=== PATIENT | male | born 1940 | race Caucasian/White ===

== ENCOUNTER 2020-09-16 11:39 | Inpatient (IN) | payer MEDICARE, OTHER ==
[2020-09-16] MEDS: Lisinopril 5 MG Tab PO SCH (16:30)
[2020-09-16] MEDS: Acetaminophen 325 MG Tab PO SCH ×2 (16:30→20:30)
[2020-09-16] MEDS: glipiZIDE 5 MG Tab PO SCH (16:31)
[2020-09-16] MEDS: metFORMIN 500 MG Tab PO SCH (18:21)
[2020-09-16] MEDS: traMADol 50 MG Tab PO SCH (18:22)
[2020-09-16] MEDS: rOPINIRole 0.5 MG Tab PO SCH (18:22)
[2020-09-16] MEDS ORDERED: Simvastatin 40 MG Tab PO SCH (20:00)
[2020-09-16] MEDS: Gabapentin 300 MG Cap PO SCH (20:28)
[2020-09-16] MEDS: Cyclobenzaprine 10 MG Tab PO SCH (20:29)
[2020-09-16] MEDS: Fish Oil/Omega-3 Fatty Acids 1 Gm Cap PO SCH (20:30)
[2020-09-16] MEDS: Fenofibrate,Micronized 134 MG Cap PO SCH (20:30)
[2020-09-16] MEDS: DULoxetine 30 MG Cap PO SCH (20:30)
[2020-09-16] MEDS: Donepezil 10 MG Tab PO SCH (20:31)
[2020-09-16] MEDS: Famotidine 20 MG Tab PO SCH (20:32)
--- NOTE | 2020-09-16 23:00 | HP ---
CHIEF COMPLAINT: Back surgery. HISTORY OF PRESENT ILLNESS: This is an 80-year-old male who on 09/11 had a L4- S1 TLIF by Dr. Ruiz. He had been having chronic pain for some time even though he had his hip surgery previously. He had been managed with 100 mg of tramadol 4 times a day. Since surgery, it sounds like things were in schedule. He did not know if he was supposed to ask for it and his pain was not under good control, but he is having bowel movements. He did have a catheter and unfortunately he failed a voiding trial and they had a difficult time putting the catheter back in, and they were wondering about some external urethral trauma because there was some bleeding, but no blood in the catheter bag. Years ago, the patient did have a TURP type prostate surgery. He otherwise has not had any burning. He has not had any cough or trouble breathing. No chest pain. He has no history of coronary disease and in fact did have a cardiac workup in preparation for this surgery with a dobutamine stress echo. The patient did require some atropine, but he had a normal stress echo. He also has diabetes, but has not been on insulin. He had to get a little bit of insulin in the hospital. He also has a diagnosis of Alzheimer disease, but it is reported to be mild. His son who is a nurse practitioner is at the bedside and said the patient drove himself to [place] for his appointments and tests, met with some friends down there. The patient normally follows with Dr. Rooney at [facility], but wanted to be followed by myself for this post hospital stay. ALLERGIES: For this patient do include chocolate, peanut, pine trees, adhesives, Pamela-Villanova causes body aches, benzoin, codeine, Comtrex, gentamicin, Lipitor, Lopid, Procardia, Questran, and Zocor. MEDICATION: His medication list is reviewed. He is on the tramadol 100 every 6 hours scheduled; Aricept 10 mg at bedtime; amoxicillin prior to dental work; Tylenol 650 every 4 hours scheduled while awake; aspirin 81 mg daily; metformin 500 twice a day, but actually I confirmed with his [facility] list, actually his metformin was 1000 twice a day but of the XR variety; TriCor 145 daily; Lopressor 25 daily and in fact that is what it is, not succinate; Glucotrol 2.5 mg dose in the morning and 5 mg before supper; Neurontin 600 3 times a day; Zocor 80 mg at bedtime. Actually, there are some really weird doses for his medications. I will be having my pharmacy review this. They have been reviewed with Zoltan's list and are found to be correct but not felt to be maybe the best for the patient with 80 of Zocor, Requip 0.25 mg in the evening, lisinopril 5 mg daily, Flomax 0.4 daily, Flexeril 10 mg at bedtime, Cymbalta 30 mg twice daily, fish oil 1000 3 times a day, Pepcid 20 mg twice daily, multivitamin daily, and glucosamine. 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 PAST SURGICAL HISTORY: He has had a rotator cuff surgery on the left. 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 He has had his tonsils and adenoids out, thyroidectomy, prostatectomy, nasal sinus surgery, left knee surgery x2, left hip surgery, intestinal resection, it sounds like a small bowel diverticulum, umbilical hernia repair, lumbar fusion, eye surgery for cataracts and lens implants, colonoscopies, appendectomy. FAMILY HISTORY: Parents are both . Father had Alzheimer's. Mother had heart disease and hypertension. SOCIAL HISTORY: The patient is . He lives with his . He is retired. His son is a nurse practitioner who works for [employer]. REVIEW OF SYSTEMS: General: The patient is not really aware of any weight changes. No fever, no chills. HEENT: No trouble swallowing. No choking on food. Cardiac: No chest pain. No palpitations. Respiratory: As stated in the HPI. Otherwise, all systems reviewed and found to be negative unless otherwise stated. PHYSICAL EXAMINATION: Vital Signs: He has a weight of 88.9 kg, temp 98.9, pulse 91, blood pressure 118/68, respiratory rate 20, O2 of 91 on room air. General: He is in no acute distress. Heart: Regular rate and rhythm. S1, S2 without murmur. Lungs: Lung sounds are clear to auscultation bilaterally without crackles or wheezes. Abdomen: Nondistended, nontender. Extremities: Warm and dry. No edema. He can push down his feet well. He can move his extremities. He does feel like his right leg is still weaker, this was present before surgery. Mental Status: He is alert and orientated x3. He is very polite. He is very cooperative. ASSESSMENT: 1. Postoperative lumbar fusion from 09/11, T4-S1 TLIF. We will continue current precautions per Neurosurgery. He just had his incision changed today, so I will evaluate when it is next change. Staple removal is already planned for the . 2. Chronic pain syndrome. We will schedule the tramadol and Tylenol. Hopefully, we can try to at least wean down to a lower dose of tramadol with some of the doses but will give it several days to a week. 3. Urinary retention with benign prostatic hyperplasia. He has outpatient Urology followup. Given the difficulty after the voiding trial of replacing his Scott, we will likely not remove his Scott until he goes for that Urology visit. 4. Type 2 diabetes, controlled. We will have him on his metformin and glipizide and do b.i.d. checks. 5. Essential hypertension. We will continue his home medications. 6. Hyperlipidemia. I am decreasing the Zocor to 40 mg daily due to concern for that dose with rhabdo. 7. Depression. We will continue his Cymbalta. This will also help with chronic pain. 8. Obesity. 9. Deep vein thrombosis prophylaxis. We will put him on SCDs. 10.Delirium reported from the hospital in [place]. This is likely with his underlying dementia. He is already on Aricept. We will have Seroquel available to use if needed. He did get a dose in [place] and slept well but we will try for redirection 1st. PLAN: 1. The patient will do swing bed with PT and OT. He will follow up with Neurosurgery in 6 weeks. We will discharge him home when able. 2. He is a code level 1. MKA: 09/16/2020 21:11:45 MODL: 09/16/2020 22:38:51 /[id number]
[2020-09-17] MEDS: traMADol 50 MG Tab PO SCH ×4 (00:24→18:13)
[2020-09-17] MEDS: Acetaminophen 325 MG Tab PO SCH ×6 (00:25→20:12)
[2020-09-17] MEDS: glipiZIDE 5 MG Tab PO SCH ×2 (06:14→16:54)
[2020-09-17] MEDS: Glucosamine 500 MG Cap PO SCH (08:09)
[2020-09-17] MEDS: Tamsulosin 0.4 MG Cap.ER PO SCH (08:09)
[2020-09-17] MEDS: Aspirin 81 MG Tab.EC PO SCH (08:09)
[2020-09-17] MEDS: Famotidine 20 MG Tab PO SCH ×2 (08:09→20:10)
[2020-09-17] MEDS: Metoprolol Tartrate 25 MG Tab PO SCH (08:09)
[2020-09-17] MEDS: metFORMIN 500 MG Tab PO SCH ×2 (08:09→17:41)
[2020-09-17] MEDS: DULoxetine 30 MG Cap PO SCH ×2 (08:09→20:12)
[2020-09-17] MEDS: Multivitamins with Iron/Calcium/Folic Acid/Minerals Tab PO SCH (08:10)
[2020-09-17] MEDS: Fish Oil/Omega-3 Fatty Acids 1 Gm Cap PO SCH ×3 (08:10→20:11)
[2020-09-17] MEDS: Gabapentin 300 MG Cap PO SCH ×3 (08:11→20:10)
[2020-09-17] MEDS: Lisinopril 5 MG Tab PO SCH (16:54)
[2020-09-17] MEDS: rOPINIRole 0.5 MG Tab PO SCH (18:14)
[2020-09-17] MEDS: QUEtiapine 25 MG Tab PO PRN (20:10)
[2020-09-17] MEDS: Donepezil 10 MG Tab PO SCH (20:10)
[2020-09-17] MEDS: Cyclobenzaprine 10 MG Tab PO SCH (20:11)
[2020-09-17] MEDS: Fenofibrate,Micronized 134 MG Cap PO SCH (20:11)
[2020-09-17] MEDS: Simvastatin 40 MG Tab PO SCH (20:15)
[2020-09-18] MEDS: Acetaminophen 325 MG Tab PO SCH ×7 (01:45→23:50)
[2020-09-18] MEDS: traMADol 50 MG Tab PO SCH ×5 (01:46→23:50)
[2020-09-18] MEDS: glipiZIDE 5 MG Tab PO SCH ×2 (06:12→17:21)
[2020-09-18] MEDS: Aspirin 81 MG Tab.EC PO SCH (07:40)
[2020-09-18] MEDS: Multivitamins with Iron/Calcium/Folic Acid/Minerals Tab PO SCH (07:40)
[2020-09-18] MEDS: DULoxetine 30 MG Cap PO SCH ×2 (07:40→19:54)
[2020-09-18] MEDS: metFORMIN 500 MG Tab PO SCH ×2 (07:41→17:21)
[2020-09-18] MEDS: Metoprolol Tartrate 25 MG Tab PO SCH (07:41)
[2020-09-18] MEDS: Glucosamine 500 MG Cap PO SCH (07:41)
[2020-09-18] MEDS: Tamsulosin 0.4 MG Cap.ER PO SCH (07:41)
[2020-09-18] MEDS: Fish Oil/Omega-3 Fatty Acids 1 Gm Cap PO SCH ×3 (07:41→19:55)
[2020-09-18] MEDS: Gabapentin 300 MG Cap PO SCH ×3 (07:41→19:55)
[2020-09-18] MEDS: Famotidine 20 MG Tab PO SCH ×2 (07:42→19:56)
[2020-09-18] MEDS: Lisinopril 5 MG Tab PO SCH (17:21)
[2020-09-18] MEDS: rOPINIRole 0.5 MG Tab PO SCH (18:12)
[2020-09-18] MEDS: Fenofibrate,Micronized 134 MG Cap PO SCH (19:54)
[2020-09-18] MEDS: Donepezil 10 MG Tab PO SCH (19:54)
[2020-09-18] MEDS: Cyclobenzaprine 10 MG Tab PO SCH (19:55)
[2020-09-18] MEDS: Simvastatin 40 MG Tab PO SCH (19:57)
[2020-09-19] MEDS: Acetaminophen 325 MG Tab PO SCH ×5 (03:42→19:59)
[2020-09-19] MEDS: glipiZIDE 5 MG Tab PO SCH ×2 (06:21→17:16)
[2020-09-19] MEDS: traMADol 50 MG Tab PO SCH ×4 (06:21→18:25)
[2020-09-19 07:03] LABS: CHLORIDE,CL 106 mmol/L (98-107); SODIUM,NA 141 mmol/L (136-145)
[2020-09-19 07:06] LABS: ANION GAP 11.2 mmol/L (5-15)
[2020-09-19] MEDS: Fish Oil/Omega-3 Fatty Acids 1 Gm Cap PO SCH ×3 (07:47→19:58)
[2020-09-19] MEDS: Tamsulosin 0.4 MG Cap.ER PO SCH (07:48)
[2020-09-19] MEDS: Metoprolol Tartrate 25 MG Tab PO SCH (07:48)
[2020-09-19] MEDS: DULoxetine 30 MG Cap PO SCH ×2 (07:48→19:57)
[2020-09-19] MEDS: Glucosamine 500 MG Cap PO SCH (07:48)
[2020-09-19] MEDS: Multivitamins with Iron/Calcium/Folic Acid/Minerals Tab PO SCH (07:48)
[2020-09-19] MEDS: Aspirin 81 MG Tab.EC PO SCH (07:48)
[2020-09-19] MEDS: metFORMIN 500 MG Tab PO SCH ×2 (07:48→18:24)
[2020-09-19] MEDS: Gabapentin 300 MG Cap PO SCH ×3 (07:48→19:59)
[2020-09-19] MEDS: Famotidine 20 MG Tab PO SCH ×2 (07:50→19:59)
[2020-09-19] MEDS: Lisinopril 5 MG Tab PO SCH (17:17)
--- NOTE | 2020-09-19 17:21 | PN ---
Progress Note for SUSAN JESUS Date: 09/19/2020 Room #: VM.217 SUBJECTIVE: This is an 80-year-old recovering after a back surgery. He is frustrated because he is having some trouble bending the right knee, but he was able to do it in bed. He is progressing with PT and walking. He is feeling very warm and sweaty over his incision, but I evaluated it today. There was no drainage, no redness. It looked excellent. He had lab work this morning. White count was normal. Hemoglobin was stable. Kidney function was good. His blood sugars have been in the 155 to 230 range, usually higher at night. He has not had any lows. He is on oral agents. He is not having any cough or shortness of breath. The patient has been wearing his support stockings. They also make him feel warm. He is not currently using SCDs, but they are available. OBJECTIVE: Vital Signs: His temperature is 97, pulse 79, blood pressure 126/84, respiratory rate 16, and O2 of 95% on room air. General: He is in no acute distress. Heart: Regular rate and rhythm. S1, S2 without murmur. Lungs: Lung sounds are clear to auscultation bilaterally without crackles or wheezes. Abdomen: Positive bowel sounds. Soft, nondistended, nontender. Extremities: Warm and dry. No edema. Mental Status: Alert and orientated x3. Back: Incision satish intact. No redness or drainage. LABORATORY DATA: Laboratory work did show him to have a white count of 6.9, hemoglobin 10.1, platelets 381. Sodium 141, potassium 4.2, chloride 106, bicarb 28, BUN 19, creatinine 0.9, glucose 151, calcium 8.5. ASSESSMENT: 1. Postoperative lumbar fusion, T4 to S1 on 09/11/2020. Continue with current therapies. Staple removal on 09/25/2020. 2. Chronic pain syndrome. He feels like his pain control is okay. He seems to be most frustrated about his leg, but this was present prior he reports. 3. Urinary retention with benign prostatic hypertrophy. Catheter is in place. This has also been bothering him. There is currently no blood in the catheter bag. We will not remove it if he has a followup with Urology and we will wait for that. 4. Type 2 diabetes, controlled. Keep medications the same. He is on b.i.d. checks. 5. Essential hypertension. 6. Hyperlipidemia, depression, obesity, and DVT prophylaxis. He does have SCDs available. He is currently wearing support hose. 7. Delirium with underlying mild dementia. He does have Seroquel available and has used it at night, which has helped him to sleep. PLAN: The patient will continue swing bed with current therapies. He will likely need lab work repeated next week. Discharge home when able. MKA: 09/19/2020 16:59:04 MODL: 09/19/2020 17:14:37 /[id number]
[2020-09-19] MEDS: rOPINIRole 0.5 MG Tab PO SCH (18:24)
[2020-09-19] MEDS: Donepezil 10 MG Tab PO SCH (19:57)
[2020-09-19] MEDS: Fenofibrate,Micronized 134 MG Cap PO SCH (19:58)
[2020-09-19] MEDS: Cyclobenzaprine 10 MG Tab PO SCH (19:58)
[2020-09-19] MEDS: Simvastatin 40 MG Tab PO SCH (20:00)
[2020-09-19] MEDS: QUEtiapine 25 MG Tab PO PRN (20:04)
[2020-09-20] MEDS: traMADol 50 MG Tab PO SCH ×4 (00:34→18:47)
[2020-09-20] MEDS: Acetaminophen 325 MG Tab PO SCH ×6 (00:34→19:46)
[2020-09-20] MEDS: glipiZIDE 5 MG Tab PO SCH ×2 (06:36→16:17)
[2020-09-20] MEDS: DULoxetine 30 MG Cap PO SCH ×2 (07:57→19:43)
[2020-09-20] MEDS: Aspirin 81 MG Tab.EC PO SCH (07:57)
[2020-09-20] MEDS: Multivitamins with Iron/Calcium/Folic Acid/Minerals Tab PO SCH (07:57)
[2020-09-20] MEDS: Glucosamine 500 MG Cap PO SCH (07:58)
[2020-09-20] MEDS: Tamsulosin 0.4 MG Cap.ER PO SCH (07:58)
[2020-09-20] MEDS: Gabapentin 300 MG Cap PO SCH ×3 (07:58→19:42)
[2020-09-20] MEDS: Famotidine 20 MG Tab PO SCH ×2 (07:58→19:45)
[2020-09-20] MEDS: Fish Oil/Omega-3 Fatty Acids 1 Gm Cap PO SCH ×3 (07:59→19:46)
[2020-09-20] MEDS: metFORMIN 500 MG Tab PO SCH ×2 (07:59→17:25)
[2020-09-20] MEDS: Metoprolol Tartrate 25 MG Tab PO SCH (08:01)
[2020-09-20] MEDS: Lisinopril 5 MG Tab PO SCH (16:21)
[2020-09-20] MEDS: rOPINIRole 0.5 MG Tab PO SCH (18:47)
[2020-09-20] MEDS: Donepezil 10 MG Tab PO SCH (19:42)
[2020-09-20] MEDS: Cyclobenzaprine 10 MG Tab PO SCH (19:43)
[2020-09-20] MEDS: Fenofibrate,Micronized 134 MG Cap PO SCH (19:43)
[2020-09-20] MEDS: Simvastatin 40 MG Tab PO SCH (19:43)
[2020-09-21] MEDS: traMADol 50 MG Tab PO SCH ×4 (00:39→18:02)
[2020-09-21] MEDS: Acetaminophen 325 MG Tab PO SCH ×6 (00:40→19:59)
[2020-09-21] MEDS: glipiZIDE 5 MG Tab PO SCH ×2 (06:03→16:51)
[2020-09-21] MEDS: Gabapentin 300 MG Cap PO SCH ×3 (07:53→19:57)
[2020-09-21] MEDS: Famotidine 20 MG Tab PO SCH ×2 (07:53→19:59)
[2020-09-21] MEDS: Multivitamins with Iron/Calcium/Folic Acid/Minerals Tab PO SCH (07:53)
[2020-09-21] MEDS: Glucosamine 500 MG Cap PO SCH (07:53)
[2020-09-21] MEDS: Fish Oil/Omega-3 Fatty Acids 1 Gm Cap PO SCH ×3 (07:54→19:57)
[2020-09-21] MEDS: Aspirin 81 MG Tab.EC PO SCH (07:54)
[2020-09-21] MEDS: metFORMIN 500 MG Tab PO SCH ×2 (07:54→17:42)
[2020-09-21] MEDS: DULoxetine 30 MG Cap PO SCH ×2 (07:54→19:59)
[2020-09-21] MEDS: Tamsulosin 0.4 MG Cap.ER PO SCH (07:54)
[2020-09-21] MEDS: Metoprolol Tartrate 25 MG Tab PO SCH (07:55)
[2020-09-21] MEDS: Lisinopril 5 MG Tab PO SCH (16:54)
[2020-09-21] MEDS: rOPINIRole 0.5 MG Tab PO SCH (18:02)
[2020-09-21] MEDS: Cyclobenzaprine 10 MG Tab PO SCH (19:57)
[2020-09-21] MEDS: Fenofibrate,Micronized 134 MG Cap PO SCH (19:58)
[2020-09-21] MEDS: Simvastatin 40 MG Tab PO SCH (19:58)
[2020-09-21] MEDS: Donepezil 10 MG Tab PO SCH (19:59)
[2020-09-22] MEDS: traMADol 50 MG Tab PO SCH ×4 (00:20→18:33)
[2020-09-22] MEDS: Acetaminophen 325 MG Tab PO SCH ×6 (00:23→19:35)
[2020-09-22] MEDS: glipiZIDE 5 MG Tab PO SCH ×2 (06:17→17:22)
[2020-09-22] MEDS: Multivitamins with Iron/Calcium/Folic Acid/Minerals Tab PO SCH (07:43)
[2020-09-22] MEDS: Aspirin 81 MG Tab.EC PO SCH (07:44)
[2020-09-22] MEDS: Tamsulosin 0.4 MG Cap.ER PO SCH (07:44)
[2020-09-22] MEDS: Famotidine 20 MG Tab PO SCH ×2 (07:44→19:35)
[2020-09-22] MEDS: DULoxetine 30 MG Cap PO SCH ×2 (07:45→19:35)
[2020-09-22] MEDS: Gabapentin 300 MG Cap PO SCH ×3 (07:45→19:34)
[2020-09-22] MEDS: Fish Oil/Omega-3 Fatty Acids 1 Gm Cap PO SCH ×3 (07:45→19:35)
[2020-09-22] MEDS: Metoprolol Tartrate 25 MG Tab PO SCH ×2 (07:46→19:35)
[2020-09-22] MEDS: Glucosamine 500 MG Cap PO SCH (07:48)
[2020-09-22] MEDS: metFORMIN 500 MG Tab PO SCH ×2 (07:48→17:22)
--- NOTE | 2020-09-22 12:39 | PCM.SN.2 ---
- Free Text/Narrative Note: Blood sugars, BP and HR running a little high will increase metformin to 1 gram BID and lopressor to BID (unsure why it is once daily only at home). I had also decreased Zocor from 80 to 40 mg here. Will continue to monitor and will try to round and discuss possible weaning down on pain medications with him tomorrow.
[2020-09-22] MEDS: Lisinopril 5 MG Tab PO SCH (17:23)
[2020-09-22] MEDS: rOPINIRole 0.5 MG Tab PO SCH (18:33)
[2020-09-22] MEDS: Cyclobenzaprine 10 MG Tab PO SCH (19:33)
[2020-09-22] MEDS: Fenofibrate,Micronized 134 MG Cap PO SCH (19:33)
[2020-09-22] MEDS: Donepezil 10 MG Tab PO SCH (19:34)
[2020-09-22] MEDS: Simvastatin 40 MG Tab PO SCH (19:35)
[2020-09-23] MEDS: traMADol 50 MG Tab PO SCH ×4 (00:18→19:42)
[2020-09-23] MEDS: Acetaminophen 325 MG Tab PO SCH ×6 (00:19→19:43)
[2020-09-23] MEDS: glipiZIDE 5 MG Tab PO SCH ×2 (06:11→17:04)
[2020-09-23] MEDS: Famotidine 20 MG Tab PO SCH ×2 (07:41→19:35)
[2020-09-23] MEDS: Gabapentin 300 MG Cap PO SCH ×3 (07:41→19:35)
[2020-09-23] MEDS: Fish Oil/Omega-3 Fatty Acids 1 Gm Cap PO SCH ×3 (07:41→19:35)
[2020-09-23] MEDS: metFORMIN 500 MG Tab PO SCH ×2 (07:41→18:22)
[2020-09-23] MEDS: Aspirin 81 MG Tab.EC PO SCH (07:41)
[2020-09-23] MEDS: Multivitamins with Iron/Calcium/Folic Acid/Minerals Tab PO SCH (07:41)
[2020-09-23] MEDS: Metoprolol Tartrate 25 MG Tab PO SCH ×2 (07:42→19:38)
[2020-09-23] MEDS: DULoxetine 30 MG Cap PO SCH ×2 (07:42→19:35)
[2020-09-23] MEDS: Tamsulosin 0.4 MG Cap.ER PO SCH (07:42)
[2020-09-23] MEDS: Glucosamine 500 MG Cap PO SCH (07:42)
[2020-09-23] MEDS ORDERED: traMADol 50 MG Tab PO PRN (08:24)
[2020-09-23] MEDS: Lisinopril 5 MG Tab PO SCH ×2 (17:04→17:08)
[2020-09-23] MEDS: rOPINIRole 0.5 MG Tab PO SCH (18:22)
[2020-09-23] MEDS: Donepezil 10 MG Tab PO SCH (19:35)
[2020-09-23] MEDS: Simvastatin 40 MG Tab PO SCH (19:35)
[2020-09-23] MEDS: Fenofibrate,Micronized 134 MG Cap PO SCH (19:35)
[2020-09-23] MEDS: Cyclobenzaprine 10 MG Tab PO SCH (19:40)
[2020-09-24] MEDS: Acetaminophen 325 MG Tab PO SCH ×6 (00:18→19:45)
[2020-09-24] MEDS: glipiZIDE 5 MG Tab PO SCH ×2 (06:16→16:28)
[2020-09-24] MEDS: traMADol 50 MG Tab PO SCH ×4 (06:17→20:28)
[2020-09-24] MEDS: Metoprolol Tartrate 25 MG Tab PO SCH ×2 (07:45→19:45)
[2020-09-24] MEDS: Multivitamins with Iron/Calcium/Folic Acid/Minerals Tab PO SCH (07:45)
[2020-09-24] MEDS: Aspirin 81 MG Tab.EC PO SCH (07:45)
[2020-09-24] MEDS: Tamsulosin 0.4 MG Cap.ER PO SCH (07:45)
[2020-09-24] MEDS: Glucosamine 500 MG Cap PO SCH (07:45)
[2020-09-24] MEDS: metFORMIN 500 MG Tab PO SCH ×2 (07:51→18:21)
[2020-09-24] MEDS: Gabapentin 300 MG Cap PO SCH ×3 (07:52→19:47)
[2020-09-24] MEDS: Fish Oil/Omega-3 Fatty Acids 1 Gm Cap PO SCH ×3 (07:52→19:44)
[2020-09-24] MEDS: DULoxetine 30 MG Cap PO SCH ×2 (07:52→19:45)
[2020-09-24] MEDS: Famotidine 20 MG Tab PO SCH ×2 (07:52→19:45)
--- NOTE | 2020-09-24 10:06 | PN ---
Progress Note for SUSAN JESUS Date: 09/24/2020 Room #: VM.217 SUBJECTIVE: This is an 80-year-old on swing bed recovering after back surgery. The patient had been doing better with pain control, but I did decrease him down to tramadol t.i.d. and he has had a bad night. He slept pretty good up until about 4 a.m., then he woke up per Nursing. He had gotten into chair with staff, but did not have on his back brace, and even though he had p.r.n. tramadol available, he did not get any at that time, but he did get his morning dose early, and his pain is improved now, but he said it took a while. Otherwise, he has not had any trouble breathing. No coughing. No fevers. He continues with the catheter, but there is no blood. Arrangements have been made to see Urology next week. He is on the Flomax. He did have a little bit of drop in blood pressure yesterday, 87/56. He does not recall being lightheaded or dizzy, but we did increase his metoprolol to twice daily since it is the Lopressor version. He admits he is forgetful about things. 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 He appreciates his recovery time here. He is also on Tylenol. OBJECTIVE: Vital Signs: His temp 98, pulse 68, blood pressure 123/68, respiratory rate 16, and O2 of 94% on room air. General: He is in no acute distress. Heart: Regular rate and rhythm. S1, S2 without murmur. Lungs: Sounds are clear to auscultation bilaterally without crackles or wheezes. Abdomen: Nontender. Extremities: Warm and dry. No edema. Mental Status: He is alert, he is orientated x3. LABORATORY DATA: He did have some lab work last week that looked okay. Hemoglobin was 10.1. ASSESSMENT: 1. Postoperative lumbar fusion T4 through S1. Continue with current therapies. Staple removal tomorrow. 2. Chronic pain syndrome. We will continue with 100 mg t.i.d. of tramadol and encourage Nursing to use a 50 mg breakthrough dose at night if he has problems. 3. Urinary retention with benign prostatic hypertrophy. I have spoken to Urology. They will try to sort things out on Tuesday when they see him. He is currently not on Proscar. 4. Type 2 diabetes, controlled on his increased metformin. 5. Essential hypertension, controlled. 6. Hyperlipidemia. 7. Depression. 8. Obesity. 9. Deep venous thrombosis prophylaxis, on SCDs. 10.Delirium with underlying dementia. He actually seems to be doing quite well here. He has not had a dose of Seroquel at night for at least 4 days. 11.Restless legs. He is on his Requip. PLAN: The patient will continue working with therapies. We will get lab work again on Tuesday. He will have the Scott catheter in place until he follows up with Urology. The patient is hoping to go to assisted living after discharge. MKA: 09/24/2020 09:20:23 MODL: 09/24/2020 10:00:18 /[id number]
[2020-09-24] MEDS: Lisinopril 5 MG Tab PO SCH (16:28)
[2020-09-24] MEDS: rOPINIRole 0.5 MG Tab PO SCH (18:21)
[2020-09-24] MEDS: Fenofibrate,Micronized 134 MG Cap PO SCH (19:43)
[2020-09-24] MEDS: Cyclobenzaprine 10 MG Tab PO SCH (19:44)
[2020-09-24] MEDS: Donepezil 10 MG Tab PO SCH (19:46)
[2020-09-24] MEDS: Simvastatin 40 MG Tab PO SCH (19:47)
[2020-09-25] MEDS: Acetaminophen 325 MG Tab PO SCH ×6 (03:12→20:39)
[2020-09-25] MEDS: glipiZIDE 5 MG Tab PO SCH ×2 (06:04→17:39)
[2020-09-25] MEDS: metFORMIN 500 MG Tab PO SCH ×2 (09:19→17:37)
[2020-09-25] MEDS: traMADol 50 MG Tab PO SCH ×3 (09:20→20:39)
[2020-09-25] MEDS: Multivitamins with Iron/Calcium/Folic Acid/Minerals Tab PO SCH (09:20)
[2020-09-25] MEDS: Gabapentin 300 MG Cap PO SCH ×3 (09:20→20:39)
[2020-09-25] MEDS: Glucosamine 500 MG Cap PO SCH (09:21)
[2020-09-25] MEDS: Fish Oil/Omega-3 Fatty Acids 1 Gm Cap PO SCH ×3 (09:21→20:39)
[2020-09-25] MEDS: Metoprolol Tartrate 25 MG Tab PO SCH ×2 (09:22→20:40)
[2020-09-25] MEDS: Famotidine 20 MG Tab PO SCH ×2 (09:22→20:39)
[2020-09-25] MEDS: Aspirin 81 MG Tab.EC PO SCH (09:22)
[2020-09-25] MEDS: Tamsulosin 0.4 MG Cap.ER PO SCH (09:22)
[2020-09-25] MEDS: DULoxetine 30 MG Cap PO SCH ×2 (09:22→20:39)
[2020-09-25] MEDS: Lisinopril 5 MG Tab PO SCH (17:37)
[2020-09-25] MEDS: rOPINIRole 0.5 MG Tab PO SCH (18:59)
--- NOTE | 2020-09-25 19:14 | PN ---
Progress Note for SUSAN JESUS Date: 09/25/2020 Room #: VM.217 SUBJECTIVE: This is an 80-year-old on swing bed after a lumbar back surgery. I was asked to see him today by nursing due to the fact he was having left lower quadrant pain, particularly with sitting or trying to have a bowel movement, even though he is having bowel movements. The pain also goes into his groin. I examined his scrotum. It was not swollen or red, but it was tender. He has had previous hernia surgeries and intestinal resections done in the past, but the hernia I see listed is umbilical. There are no obvious inguinal hernia scars noted, but the area was in that left lower quadrant above the groin, almost a small deficit in the fascia, but no bulge noted. The patient was tender here. He has not been throwing up or feeling sick. He says it has been going on like 3 days. He had a decrease in his tramadol to 100 three times a day and has not taken any extra doses. He had lab work 1 week ago that was excellent. OBJECTIVE: VITAL SIGNS: Temperature 98.2, pulse 72, blood pressure 130/71, respiratory rate 18, O2 96 on room air. GENERAL: He is in no acute distress. HEART: Regular rate and rhythm. LUNGS: Sounds are clear to auscultation. ABDOMEN: Positive bowel sounds. It is soft and nondistended. There is tenderness in the left lower quadrant. PELVIC: His penis does have a Scott catheter in place. I did not actually appreciate any stitch. There is no bleeding around it. His scrotum were not enlarged or swollen or red, but they are tender, especially on the left side. There is no redness, warmth, or drainage. MENTAL STATUS: He is alert and orientated x3. ASSESSMENT: 1. Left lower quadrant pain. The patient does report some history of diverticulitis. We will get lab work. If in fact he does have some hernia, he would need a CT to further evaluate that. I did discuss with the patient that he is going to be seeing Urology next week and we will see what they think. Hopefully, they can remove his catheter. We will also check a UA. His urine is a little bit darker, but not bloody. He has been drinking plenty of water. They have been flushing it. 2. BPH with urinary retention. He is on Flomax. He will see Urology next week as scheduled. PLAN: We will get lab work and a UA. May use Tylenol for pain. His pain is not severe enough to warrant any CT, but if it would worsen, we would check that. Flush the catheter if needed for clots. Continue other therapies for his back surgery recovery. The rest of his vitals and lab work has looked excellent. Blood sugars have also improved. MKA: 09/25/2020 18:46:32 MODL: 09/25/2020 19:08:34 /[id number]
[2020-09-25] MEDS: Fenofibrate,Micronized 134 MG Cap PO SCH (20:38)
[2020-09-25] MEDS: Donepezil 10 MG Tab PO SCH (20:39)
[2020-09-25] MEDS: Cyclobenzaprine 10 MG Tab PO SCH (20:40)
[2020-09-25] MEDS: Simvastatin 40 MG Tab PO SCH (20:40)
[2020-09-26] MEDS: Acetaminophen 325 MG Tab PO SCH ×7 (02:39→23:57)
[2020-09-26] MEDS: glipiZIDE 5 MG Tab PO SCH ×2 (06:53→17:02)
[2020-09-26 06:58] LABS: ANION GAP 12.6 mmol/L (5-15); CHLORIDE,CL 104 mmol/L (98-107); SODIUM,NA 141 mmol/L (136-145)
[2020-09-26] MEDS: Glucosamine 500 MG Cap PO SCH (07:58)
[2020-09-26] MEDS: Gabapentin 300 MG Cap PO SCH ×3 (07:58→20:45)
[2020-09-26] MEDS: Fish Oil/Omega-3 Fatty Acids 1 Gm Cap PO SCH ×3 (07:58→20:45)
[2020-09-26] MEDS: traMADol 50 MG Tab PO SCH ×3 (07:58→20:47)
[2020-09-26] MEDS: DULoxetine 30 MG Cap PO SCH ×2 (07:58→20:48)
[2020-09-26] MEDS: Famotidine 20 MG Tab PO SCH ×2 (07:59→20:48)
[2020-09-26] MEDS: Aspirin 81 MG Tab.EC PO SCH (07:59)
[2020-09-26] MEDS: Tamsulosin 0.4 MG Cap.ER PO SCH (08:00)
[2020-09-26] MEDS: metFORMIN 500 MG Tab PO SCH ×2 (08:00→18:16)
[2020-09-26] MEDS: Multivitamins with Iron/Calcium/Folic Acid/Minerals Tab PO SCH (08:00)
[2020-09-26] MEDS: Metoprolol Tartrate 25 MG Tab PO SCH ×2 (08:00→20:48)
[2020-09-26] MEDS: Sulfamethoxazole/Trimethoprim 800-160 MG Tab PO SCH ×2 (09:02→20:48)
[2020-09-26] MEDS: Lisinopril 5 MG Tab PO SCH (17:02)
[2020-09-26] MEDS: rOPINIRole 0.5 MG Tab PO SCH (18:21)
[2020-09-26] MEDS: Cyclobenzaprine 10 MG Tab PO SCH (20:47)
[2020-09-26] MEDS: Simvastatin 40 MG Tab PO SCH (20:47)
[2020-09-26] MEDS: Fenofibrate,Micronized 134 MG Cap PO SCH (20:48)
[2020-09-26] MEDS: Donepezil 10 MG Tab PO SCH (20:49)
[2020-09-27] MEDS: Acetaminophen 325 MG Tab PO SCH ×5 (03:47→19:58)
[2020-09-27] MEDS: glipiZIDE 5 MG Tab PO SCH ×2 (06:38→17:10)
[2020-09-27] MEDS: Fish Oil/Omega-3 Fatty Acids 1 Gm Cap PO SCH ×2 (07:36→19:52)
[2020-09-27] MEDS: Glucosamine 500 MG Cap PO SCH (07:36)
[2020-09-27] MEDS: Gabapentin 300 MG Cap PO SCH ×3 (07:36→19:52)
[2020-09-27] MEDS: DULoxetine 30 MG Cap PO SCH ×2 (07:37→19:58)
[2020-09-27] MEDS: Aspirin 81 MG Tab.EC PO SCH (07:37)
[2020-09-27] MEDS: Tamsulosin 0.4 MG Cap.ER PO SCH (07:37)
[2020-09-27] MEDS: traMADol 50 MG Tab PO SCH ×3 (07:37→19:52)
[2020-09-27] MEDS: metFORMIN 500 MG Tab PO SCH ×2 (07:37→17:09)
[2020-09-27] MEDS: Metoprolol Tartrate 25 MG Tab PO SCH ×2 (07:39→19:56)
[2020-09-27] MEDS: Multivitamins with Iron/Calcium/Folic Acid/Minerals Tab PO SCH (07:39)
[2020-09-27] MEDS: Famotidine 20 MG Tab PO SCH ×2 (07:39→19:52)
[2020-09-27] MEDS: Sulfamethoxazole/Trimethoprim 800-160 MG Tab PO SCH ×2 (07:39→19:59)
--- NOTE | 2020-09-27 13:09 | PN ---
Progress Note for SUSAN JESUS Date: 09/26/2020 Room #: VM.217 SUBJECTIVE: This is an 80-year-old seen today due to having left lower quadrant abdominal discomfort for the last few days. He is bothered mostly now by the catheter. It is bothering him. He shows me the head of his penis. He is worried that his skin is not doing what it should, although it is not stuck or retracted foreskin. There is no bleeding. There is just minimal swelling. His scrotum looks okay. There is no swelling. He had a bowel movement today. He says when he strains for that, that is when it gets to be a little more swollen. He has not had any fever or chills, but his urine was found to be positive for infection, but more so blood in the urine like 75 to 100 and 5 to 10 wbc's. He was started on Bactrim, and it is being sent for culture. OBJECTIVE: Vital Signs: His temperature is 98.2, his pulse 89, blood pressure 131/70, respiratory rate 16, and O2 of 93% on room air. General: He is in no acute distress. He is currently sitting on the toilet. I watched him ambulate in there with his walker. He did quite well. LABORATORY DATA: Lab work does show white count at 10.3, hemoglobin 11.1, platelets 395. Creatinine 1.0, glucose 150, albumin 3. ASSESSMENT AND PLAN: 1. Benign prostatic hypertrophy with urinary retention and Soctt catheter in place. 2. Probable urinary tract infection. We will encourage fluids. We will start him on some Bactrim twice daily at least until he sees Urology on Tuesday. 3. Back surgery, recovering well. 4. Mild leukocytosis. We will repeat lab work on Tuesday. 5. Pain control. He has actually done quite well with the decreased tramadol to 100 three times a day. MKA: 09/26/2020 16:40:28 MODL: 09/26/2020 17:07:39 /[id number]
[2020-09-27] MEDS: Lisinopril 5 MG Tab PO SCH (17:10)
[2020-09-27] MEDS: rOPINIRole 0.5 MG Tab PO SCH (18:12)
[2020-09-27] MEDS: Simvastatin 40 MG Tab PO SCH (19:55)
[2020-09-27] MEDS: Fenofibrate,Micronized 134 MG Cap PO SCH (19:56)
[2020-09-27] MEDS: QUEtiapine 25 MG Tab PO PRN (19:57)
[2020-09-27] MEDS: Cyclobenzaprine 10 MG Tab PO SCH (19:57)
[2020-09-27] MEDS: Donepezil 10 MG Tab PO SCH (19:58)
[2020-09-28] MEDS: Acetaminophen 325 MG Tab PO SCH ×5 (05:30→21:26)
[2020-09-28] MEDS: glipiZIDE 5 MG Tab PO SCH ×2 (06:28→16:29)
[2020-09-28] MEDS: Fish Oil/Omega-3 Fatty Acids 1 Gm Cap PO SCH ×2 (07:56→21:22)
[2020-09-28] MEDS: Famotidine 20 MG Tab PO SCH ×2 (07:57→21:25)
[2020-09-28] MEDS: Gabapentin 300 MG Cap PO SCH ×3 (07:57→21:26)
[2020-09-28] MEDS: metFORMIN 500 MG Tab PO SCH ×2 (07:57→18:06)
[2020-09-28] MEDS: Aspirin 81 MG Tab.EC PO SCH (07:57)
[2020-09-28] MEDS: Multivitamins with Iron/Calcium/Folic Acid/Minerals Tab PO SCH (07:57)
[2020-09-28] MEDS: Glucosamine 500 MG Cap PO SCH (07:57)
[2020-09-28] MEDS: Sulfamethoxazole/Trimethoprim 800-160 MG Tab PO SCH (07:57)
[2020-09-28] MEDS: Tamsulosin 0.4 MG Cap.ER PO SCH (07:58)
[2020-09-28] MEDS: DULoxetine 30 MG Cap PO SCH ×2 (07:58→21:22)
[2020-09-28] MEDS: Metoprolol Tartrate 25 MG Tab PO SCH ×2 (07:58→21:24)
[2020-09-28] MEDS: traMADol 50 MG Tab PO SCH ×3 (07:59→21:25)
[2020-09-28] MEDS: Lisinopril 5 MG Tab PO SCH (16:28)
[2020-09-28] MEDS: Ciprofloxacin 250 MG Tab PO SCH ×2 (16:28→21:25)
[2020-09-28] MEDS: rOPINIRole 0.5 MG Tab PO SCH (18:06)
[2020-09-28] MEDS: Cyclobenzaprine 10 MG Tab PO SCH (21:22)
[2020-09-28] MEDS: Fenofibrate,Micronized 134 MG Cap PO SCH (21:24)
[2020-09-28] MEDS: Simvastatin 40 MG Tab PO SCH (21:25)
[2020-09-28] MEDS: Donepezil 10 MG Tab PO SCH (21:25)
[2020-09-29] MEDS: Acetaminophen 325 MG Tab PO SCH ×6 (01:21→20:39)
[2020-09-29 06:53] LABS: ANION GAP 10.8 mmol/L (5-15); CHLORIDE,CL 106 mmol/L (98-107); SODIUM,NA 140 mmol/L (136-145)
[2020-09-29] MEDS: glipiZIDE 5 MG Tab PO SCH ×2 (06:53→17:22)
[2020-09-29] MEDS: Aspirin 81 MG Tab.EC PO SCH (07:38)
[2020-09-29] MEDS: Glucosamine 500 MG Cap PO SCH (07:38)
[2020-09-29] MEDS: metFORMIN 500 MG Tab PO SCH ×2 (07:39→17:23)
[2020-09-29] MEDS: traMADol 50 MG Tab PO SCH ×3 (07:39→20:40)
[2020-09-29] MEDS: Gabapentin 300 MG Cap PO SCH ×3 (07:39→20:37)
[2020-09-29] MEDS: Fish Oil/Omega-3 Fatty Acids 1 Gm Cap PO SCH ×2 (07:39→20:36)
[2020-09-29] MEDS: DULoxetine 30 MG Cap PO SCH ×2 (07:39→20:38)
[2020-09-29] MEDS: Ciprofloxacin 250 MG Tab PO SCH ×2 (07:39→20:38)
[2020-09-29] MEDS: Metoprolol Tartrate 25 MG Tab PO SCH ×2 (07:40→20:38)
[2020-09-29] MEDS: Famotidine 20 MG Tab PO SCH ×2 (07:40→20:36)
[2020-09-29] MEDS: Tamsulosin 0.4 MG Cap.ER PO SCH ×2 (07:40→20:38)
[2020-09-29] MEDS: Multivitamins with Iron/Calcium/Folic Acid/Minerals Tab PO SCH (07:40)
[2020-09-29] MEDS: Lisinopril 5 MG Tab PO SCH (17:23)
[2020-09-29] MEDS: rOPINIRole 0.5 MG Tab PO SCH (18:13)
[2020-09-29] MEDS: Simvastatin 40 MG Tab PO SCH (20:36)
[2020-09-29] MEDS: Fenofibrate,Micronized 134 MG Cap PO SCH (20:36)
[2020-09-29] MEDS: Donepezil 10 MG Tab PO SCH (20:37)
[2020-09-29] MEDS: Cyclobenzaprine 10 MG Tab PO SCH (20:37)
[2020-09-30] MEDS: Acetaminophen 325 MG Tab PO SCH ×6 (00:07→19:45)
[2020-09-30] MEDS: glipiZIDE 5 MG Tab PO SCH ×2 (06:37→17:06)
[2020-09-30] MEDS: metFORMIN 500 MG Tab PO SCH ×2 (07:41→17:05)
[2020-09-30] MEDS: Multivitamins with Iron/Calcium/Folic Acid/Minerals Tab PO SCH (07:41)
[2020-09-30] MEDS: Famotidine 20 MG Tab PO SCH ×2 (07:41→19:42)
[2020-09-30] MEDS: Aspirin 81 MG Tab.EC PO SCH (07:41)
[2020-09-30] MEDS: Glucosamine 500 MG Cap PO SCH (07:42)
[2020-09-30] MEDS: Tamsulosin 0.4 MG Cap.ER PO SCH ×2 (07:42→19:42)
[2020-09-30] MEDS: Metoprolol Tartrate 25 MG Tab PO SCH ×2 (07:42→19:42)
[2020-09-30] MEDS: Gabapentin 300 MG Cap PO SCH ×3 (07:42→19:41)
[2020-09-30] MEDS: traMADol 50 MG Tab PO SCH ×3 (07:42→19:44)
[2020-09-30] MEDS: Fish Oil/Omega-3 Fatty Acids 1 Gm Cap PO SCH ×2 (07:44→19:42)
[2020-09-30] MEDS: Ciprofloxacin 250 MG Tab PO SCH ×2 (07:44→19:43)
[2020-09-30] MEDS: DULoxetine 30 MG Cap PO SCH ×2 (07:44→19:43)
--- NOTE | 2020-09-30 09:52 | PN ---
Progress Note for SUSAN JESUS Date: 09/30/2020 Room #: VM.217 SUBJECTIVE: This is an 80-year-old on swing bed recovering after a back surgery. He has been doing well. Yesterday, he saw Urology for urinary retention because he was newly on antibiotics since 09/26 for a UTI. Initially with Bactrim. Then, culture grew Pseudomonas. Switched to Cipro on the . Urology elected to leave the Sctot catheter in until . His Flomax was also increased to twice daily yesterday. His left lower quadrant pain has resolved. His catheter has cleared up significantly. It was tea colored before. His white count yesterday did normalize. He is up moving with therapy. He feels like he is getting a lot more use out of that right leg. He also was weaned down to 50 mg of tramadol 3 times a day yesterday after he got his 100 mg morning dose. He said he did well. The pain was at a 4, but it seems to bother him more at night. He has not taken any p.r.n. doses. He is still on Tylenol. The patient was hopeful to go to assisted living. It sounds like after his visited, he changed his mind. 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 OBJECTIVE: Vital Signs: He has temperature 97.4, pulse 67, blood pressure 122/66, respiratory rate 16, and O2 of 95% on room air. General: He is in no acute distress. Heart: Regular rate and rhythm. S1, S2 without murmur. Lungs: Lung sounds are clear to auscultation bilaterally without crackles or wheezes. Extremities: Warm and dry. No edema. : Scott in place. Clear urine. Mental Status: Alert and oriented x3. ASSESSMENT: 1. Lumbar back surgery, recovering well. Likely, will be discharged home from therapies as soon as Tuesday. 2. Benign prostatic hyperplasia with urinary retention, remote history of transurethral resection of the prostate. Scott catheter in place with plan for removal in the next 2 days. 3. Pseudomonas urinary tract infection. On day #3 of Cipro. We will contact Infectious Disease to see if we need to treat for a full 14-day course. We did at least treat through removing the catheter. 4. Pain control. He is doing excellent with the decrease in tramadol. I am going to give him 100 mg dose tonight just to ease the taper and help with his pain at night as he has not been good about asking for pain medications. 5. Dementia, mild. He has been doing well. Seems to have improved cognition with lower doses of the tramadol. He is on Aricept. He has not had any Seroquel last night, but did have some Tuesday night. That was the day his visited. 6. Diabetes. Blood sugars are under good control. 7. Essential hypertension, controlled. PLAN: The patient will continue on swing bed cares. He will complete a course of Cipro. Will continue to wean the tramadol. Remove catheter . Son, Cesar, updated for possible discharge home on Tuesday. Questions answered. MKA: 09/30/2020 09:02:45 MODL: 09/30/2020 09:41:45 /[id number]
[2020-09-30] MEDS: Lisinopril 5 MG Tab PO SCH (17:06)
[2020-09-30] MEDS: rOPINIRole 0.5 MG Tab PO SCH (18:07)
[2020-09-30] MEDS: Fenofibrate,Micronized 134 MG Cap PO SCH (19:41)
[2020-09-30] MEDS: Simvastatin 40 MG Tab PO SCH (19:43)
[2020-09-30] MEDS: Cyclobenzaprine 10 MG Tab PO SCH (19:43)
[2020-09-30] MEDS: Donepezil 10 MG Tab PO SCH (19:43)
[2020-09-30] MEDS ORDERED: traMADol 50 MG Tab PO ONE (20:00)
[2020-10-01] MEDS: glipiZIDE 5 MG Tab PO SCH ×2 (06:31→17:04)
[2020-10-01] MEDS: Acetaminophen 325 MG Tab PO SCH ×7 (06:32→23:57)
[2020-10-01] MEDS: Tamsulosin 0.4 MG Cap.ER PO SCH ×2 (08:06→19:36)
[2020-10-01] MEDS: Fish Oil/Omega-3 Fatty Acids 1 Gm Cap PO SCH ×2 (08:06→19:35)
[2020-10-01] MEDS: Gabapentin 300 MG Cap PO SCH ×3 (08:06→19:34)
[2020-10-01] MEDS: Multivitamins with Iron/Calcium/Folic Acid/Minerals Tab PO SCH (08:06)
[2020-10-01] MEDS: Glucosamine 500 MG Cap PO SCH (08:06)
[2020-10-01] MEDS: Aspirin 81 MG Tab.EC PO SCH (08:06)
[2020-10-01] MEDS: Famotidine 20 MG Tab PO SCH ×2 (08:06→19:35)
[2020-10-01] MEDS: Ciprofloxacin 250 MG Tab PO SCH ×2 (08:07→19:34)
[2020-10-01] MEDS: traMADol 50 MG Tab PO SCH ×3 (08:07→19:37)
[2020-10-01] MEDS: DULoxetine 30 MG Cap PO SCH ×2 (08:07→19:34)
[2020-10-01] MEDS: metFORMIN 500 MG Tab PO SCH ×2 (08:07→17:04)
[2020-10-01] MEDS: Metoprolol Tartrate 25 MG Tab PO SCH ×2 (08:07→19:35)
[2020-10-01] MEDS: Lisinopril 5 MG Tab PO SCH (17:08)
[2020-10-01] MEDS: rOPINIRole 0.5 MG Tab PO SCH (18:21)
[2020-10-01] MEDS: Simvastatin 40 MG Tab PO SCH (19:35)
[2020-10-01] MEDS: Fenofibrate,Micronized 134 MG Cap PO SCH (19:35)
[2020-10-01] MEDS: Donepezil 10 MG Tab PO SCH (19:35)
[2020-10-01] MEDS: Cyclobenzaprine 10 MG Tab PO SCH (19:38)
[2020-10-02] MEDS: Acetaminophen 325 MG Tab PO SCH ×5 (06:45→19:48)
[2020-10-02] MEDS: glipiZIDE 5 MG Tab PO SCH ×2 (06:45→17:19)
[2020-10-02] MEDS: Gabapentin 300 MG Cap PO SCH ×3 (07:51→19:46)
[2020-10-02] MEDS: Metoprolol Tartrate 25 MG Tab PO SCH ×2 (07:52→19:48)
[2020-10-02] MEDS: traMADol 50 MG Tab PO SCH ×3 (07:53→19:47)
[2020-10-02] MEDS: metFORMIN 500 MG Tab PO SCH ×2 (07:54→17:19)
[2020-10-02] MEDS: DULoxetine 30 MG Cap PO SCH ×2 (07:54→19:46)
[2020-10-02] MEDS: Tamsulosin 0.4 MG Cap.ER PO SCH ×2 (07:54→19:46)
[2020-10-02] MEDS: Ciprofloxacin 250 MG Tab PO SCH ×2 (07:55→19:48)
[2020-10-02] MEDS: Multivitamins with Iron/Calcium/Folic Acid/Minerals Tab PO SCH (07:56)
[2020-10-02] MEDS: Fish Oil/Omega-3 Fatty Acids 1 Gm Cap PO SCH ×2 (07:56→19:46)
[2020-10-02] MEDS: Famotidine 20 MG Tab PO SCH ×2 (07:57→19:45)
[2020-10-02] MEDS: Aspirin 81 MG Tab.EC PO SCH (07:57)
[2020-10-02] MEDS: Glucosamine 500 MG Cap PO SCH (09:50)
[2020-10-02] MEDS: Lisinopril 5 MG Tab PO SCH (17:17)
[2020-10-02] MEDS: rOPINIRole 0.5 MG Tab PO SCH (18:09)
[2020-10-02] MEDS: Fenofibrate,Micronized 134 MG Cap PO SCH (19:45)
[2020-10-02] MEDS: Donepezil 10 MG Tab PO SCH (19:46)
[2020-10-02] MEDS: Cyclobenzaprine 10 MG Tab PO SCH (19:46)
[2020-10-02] MEDS: Simvastatin 40 MG Tab PO SCH (19:47)
[2020-10-03] MEDS: Acetaminophen 325 MG Tab PO SCH ×6 (01:26→19:36)
[2020-10-03] MEDS: glipiZIDE 5 MG Tab PO SCH ×2 (06:19→17:12)
[2020-10-03] MEDS: Gabapentin 300 MG Cap PO SCH ×3 (07:25→19:33)
[2020-10-03] MEDS: metFORMIN 500 MG Tab PO SCH ×2 (07:25→17:12)
[2020-10-03] MEDS: Fish Oil/Omega-3 Fatty Acids 1 Gm Cap PO SCH ×2 (07:26→19:33)
[2020-10-03] MEDS: Metoprolol Tartrate 25 MG Tab PO SCH ×2 (07:26→19:35)
[2020-10-03] MEDS: Multivitamins with Iron/Calcium/Folic Acid/Minerals Tab PO SCH (07:26)
[2020-10-03] MEDS: DULoxetine 30 MG Cap PO SCH ×2 (07:26→19:33)
[2020-10-03] MEDS: Glucosamine 500 MG Cap PO SCH (07:26)
[2020-10-03] MEDS: Ciprofloxacin 250 MG Tab PO SCH ×2 (07:26→19:34)
[2020-10-03] MEDS: Tamsulosin 0.4 MG Cap.ER PO SCH ×2 (07:26→19:33)
[2020-10-03] MEDS: Aspirin 81 MG Tab.EC PO SCH (07:26)
[2020-10-03] MEDS: Famotidine 20 MG Tab PO SCH ×2 (07:26→19:34)
[2020-10-03] MEDS: traMADol 50 MG Tab PO SCH ×3 (07:26→19:33)
[2020-10-03] MEDS: Lisinopril 5 MG Tab PO SCH (17:12)
[2020-10-03] MEDS: rOPINIRole 0.5 MG Tab PO SCH (18:15)
[2020-10-03] MEDS: Donepezil 10 MG Tab PO SCH (19:33)
[2020-10-03] MEDS: Simvastatin 40 MG Tab PO SCH (19:33)
[2020-10-03] MEDS: Cyclobenzaprine 10 MG Tab PO SCH (19:34)
[2020-10-03] MEDS: Fenofibrate,Micronized 134 MG Cap PO SCH (19:35)
--- NOTE | 2020-10-03 21:13 | DISCH ---
PRIMARY DISCHARGE DIAGNOSES: 1. Back fusion on 09/11/2020 at [facility] by Dr. Ruiz and L4 through S1 TLIF. 2. Chronic back pain. Previous hip replacements as well. SECONDARY DISCHARGE DIAGNOSES: 1. Dementia with some delirium after surgery. This has cleared. He has not required any Seroquel for a week. 2. Benign prostatic hyperplasia with urinary retention and previous TURP procedure, resolved with a successful voiding trial yesterday. His postvoid residual has been 0. 3. Type 2 diabetes, controlled on oral agents. 4. Essential hypertension. 5. Hyperlipidemia. 6. Depression. 7. Obesity. 8. Deep vein thrombosis prophylaxis. He was on SCDs. The patient has also been on his 81 mg dose of aspirin. 9. Obesity. REASON FOR ADMISSION: On the date of admission, this 80-year-old male who had surgery came over to swing bed for further therapies. He was on tramadol 100 mg 4 times a day which we were able to wean down to 50 mg 3 times a day with him taking only 1 additional 50 mg dose. He was continued on Neurontin. He was on Flexeril at bedtime. He overall was doing well. His pain was controlled. It would sometimes get up to a 4. The patient did then have some left lower quadrant pain. On the , he was having repeat lab work and a positive UA, therefore was started on Bactrim, unfortunately culture grew Pseudomonas. He was switched over to Cipro on the and will complete a 1-week course of that. He was supposed to have urology voiding trial most likely to be on the , but with the new infection that was postponed until and his Flomax was also increased to twice daily. Luckily when the catheter was removed, the patient was voiding extremely well, having no residual. The patient has been up moving around with therapy. He is especially impressed by how well his right leg is working. His blood sugars were under excellent control while he was here in the 121-151 range in the last several days and those are on b.i.d. checks. He also had good control of his blood pressure. Metoprolol did get increased from 25 mg daily to 25 mg b.i.d. since he was on the lopressor version. He did not feel lightheaded or dizzy. He was tolerating the increased Flomax, but since he is already taking medications twice daily, decision was made to split that dose up. The patient has been having bowel movements. He has been eating 100% of his meals. Zocor was decreased to 40 mg daily due to him previously being on 80 mg. He is not having any cough. No shortness of breath. Last set of lab work was done on the showed his hemoglobin stable at 10.8, normal white count, normal platelets. Glucose 116 with normal creatinine 1.1. DISCHARGE PLANS AND INSTRUCTIONS: He will follow up with Dr. Rooney on 10/16/2020 for his primary care in [place]. He also has multiple other orthopedic followups including 1 with bone health on 10/28/2020 and Neurosurgery on 10/28/2020 and they will get the repeat x-rays they need at that time. He will be on Home Health on discharge with [place]. He is to have no bending, no twisting, no yard work, no lifting over 15 pounds. Avoid getting in and out of your hot tub. He should not drive until he sees Neurosurgery. The patient may continue Tylenol 4 times a day, he was getting it every 4 hours while awake. Again, other medication changes were made and orders on those were sent to Dr. Rooney. For Home Health, discharge [id number] occurred with myself on 10/03/2020. Primary reason for home health are for teaching and assessments of recent event of back surgery to help with his transition back home, nursing for medication monitoring and med changes especially with weaning doses of pain pills, and physical and occupational therapy to work with ADLs. He will be homebound due to this recent event of back surgery and needing the assistance of another person and his walker to leave his home. I will periodically review this plan of care until it is transitioned back over to Dr. Rooney's PCP. DISCHARGE PHYSICAL EXAMINATION: Vital Signs: Discharging vitals include temperature 98.3, pulse 70, blood pressure 122/80, respiratory rate 16, O2 of 96% on room air. General: He is in no acute distress. Heart: Regular rate and rhythm. S1, S2 without murmur. Lungs: Lung sounds are clear to auscultation bilaterally without crackles or wheezes. Abdomen: Positive bowel sounds. Nontender. Extremities: Warm and dry. No edema. Mental Status: Alert and oriented x3, although he does not really ever remember my name, but I am a new physician to him. His back incision is examined. He has had his satish removed already when they were due. It is well healed. There is no redness, no drainage. MKA: 10/03/2020 15:09:45 MODL: 10/03/2020 21:03:26 /[id number]
[2020-10-04] MEDS: glipiZIDE 5 MG Tab PO SCH (06:27)
[2020-10-04] MEDS: Tamsulosin 0.4 MG Cap.ER PO SCH (07:29)
[2020-10-04] MEDS: Gabapentin 300 MG Cap PO SCH (07:29)
[2020-10-04] MEDS: DULoxetine 30 MG Cap PO SCH (07:29)
[2020-10-04] MEDS: Acetaminophen 325 MG Tab PO SCH (07:29)
[2020-10-04] MEDS: Aspirin 81 MG Tab.EC PO SCH (07:29)
[2020-10-04] MEDS: Glucosamine 500 MG Cap PO SCH (07:29)
[2020-10-04] MEDS: Multivitamins with Iron/Calcium/Folic Acid/Minerals Tab PO SCH (07:29)
[2020-10-04] MEDS: Ciprofloxacin 250 MG Tab PO SCH (07:29)
[2020-10-04] MEDS: metFORMIN 500 MG Tab PO SCH (07:30)
[2020-10-04] MEDS: traMADol 50 MG Tab PO SCH (07:30)
[2020-10-04] MEDS: Famotidine 20 MG Tab PO SCH (07:30)
[2020-10-04] MEDS: Fish Oil/Omega-3 Fatty Acids 1 Gm Cap PO SCH (07:31)
[2020-10-04] MEDS: Metoprolol Tartrate 25 MG Tab PO SCH (07:31)
== END 2020-10-04 10:05 | disposition home health service (06) | DRG 560 ==
LOC: VM.MS 11:57
PROVIDERS: ADMIT Internal Medicine; ATTEND Internal Medicine
DX: Z47.89 Encounter for other orthopedic aftercare (principal); N39.0 Urinary tract infection, site not specified; Z98.1 Arthrodesis status; G89.29 Other chronic pain; N40.1 Benign prostatic hyperplasia with lower urinary tract symptoms; R33.8 Other retention of urine; F32.9 Major depressive disorder, single episode, unspecified; E11.9 Type 2 diabetes mellitus without complications; E78.5 Hyperlipidemia, unspecified; E66.9 Obesity, unspecified; G30.9 Alzheimer's disease, unspecified; F02.80 Dementia in other diseases classified elsewhere, unspecified severity, without behavioral disturbance, psychotic disturbance, mood disturbance, and anxiety; I10 Essential (primary) hypertension; B96.5 Pseudomonas (aeruginosa) (mallei) (pseudomallei) as the cause of diseases classified elsewhere; G25.81 Restless legs syndrome; Z91.018 Allergy to other foods; Z88.8 Allergy status to other drugs, medicaments and biological substances; Z91.09 Other allergy status, other than to drugs and biological substances; Z79.82 Long term (current) use of aspirin; Z79.84 Long term (current) use of oral hypoglycemic drugs; Z79.899 Other long term (current) drug therapy; Z98.49 Cataract extraction status, unspecified eye; Z98.890 Other specified postprocedural states; Z90.49 Acquired absence of other specified parts of digestive tract
CPT/HCPCS: 36415; 51798; 80048; 80053; 81001; 82947; 85025; 87086; 87088; 87186; 97110-GP; 97112-GP; 97116-GP; 97163-GP; 97165-GO; 97530-GP; 97535-GO; A9270-GY

== ENCOUNTER 2024-04-07 10:22 | Emergency (ER) | payer MEDICARE, OTHER ==
[2024-04-07] MEDS ORDERED: Ketorolac 15 MG/ML SDV IVPUSH ONE (11:56)
[2024-04-07] MEDS: Take Home: Acetaminophen/oxyCODONE 325-5 MG, 5 Tab Pack PO ONE (12:52)
[2024-04-07] MEDS: Ketorolac 30 MG/ML SDV IM ONE (12:52)
== END 2024-04-07 13:00 | disposition home or self-care (01) ==
LOC: VM.ED 10:22
DX: S73.102A Unspecified sprain of left hip, initial encounter (principal); S39.012A Strain of muscle, fascia and tendon of lower back, initial encounter; E11.9 Type 2 diabetes mellitus without complications; E66.9 Obesity, unspecified; Z79.82 Long term (current) use of aspirin; Z79.899 Other long term (current) drug therapy; Z88.1 Allergy status to other antibiotic agents; Z88.6 Allergy status to analgesic agent; Z91.011 Allergy to milk products; Z88.8 Allergy status to other drugs, medicaments and biological substances; Z91.09 Other allergy status, other than to drugs and biological substances; Z91.010 Allergy to peanuts; Z91.018 Allergy to other foods; Z88.5 Allergy status to narcotic agent; Z68.32 Body mass index [BMI] 32.0-32.9, adult; W06.XXXA Fall from bed, initial encounter
CPT/HCPCS: 72100; 96372; 99283; A9270-GY; J1885